=== PATIENT | female | born 1945 | race Caucasian/White ===

== ENCOUNTER 2019-10-24 13:27 | Outpatient (CLI) | payer MEDICARE, OTHER, SELFPAY ==
--- NOTE | 2019-10-24 13:37 | XR_ITS ---
WS: [id number] Left ankle, 3 views, 10/24/2019 Clinical Data: PRIMARY OSTEOARTHRITIS, LEFT ANKLE AND FOOT Comparison: Left ankle, 10/17/2017. Findings: No fractures or dislocations are seen. The ankle mortise is normal. The talus and calcaneus are unrem arkable. No soft tissue swelling over the medial or lateral malleolus is seen. There is an Achilles spur. There is osteoarthritic change of the talus. XR/XR ankle LT min 3V* [id number] Impression: Osteoarthritis of the left talus.
== END 2019-10-24 13:28 | disposition home or self-care (01) ==
LOC: RADWPI 13:35
PROVIDERS: Family Provider Family Medicine; PCP Family Medicine; Visit Provider Family Medicine
DX: M19.072 Primary osteoarthritis, left ankle and foot (principal)
CPT/HCPCS: 73610

== ENCOUNTER 2019-11-26 11:22 | Outpatient (CLI) | payer MEDICARE, OTHER, SELFPAY ==
--- NOTE | 2019-11-26 11:30 | MM_ITS ---
WS: [id number] BILATERAL SCREENING DIGITAL MAMMOGRAM WITH CAD HISTORY: screening COMPARISON: 11/22/2012 and 06/04/2012 Bilateral CC and MLO views submitted. Computer aided detection analyzed. Breast composition: There are scattered areas of fibroglandular density. No suspicious masses, microc alcifications or architectural distortion. Benign vascular calcifications in each breast. MM/[id number] IMPRESSION: BI-RADS: 2-Benign FOLLOW UP: 1 Year Follow-up
== END 2019-11-26 11:23 | disposition home or self-care (01) ==
LOC: RADSHAW 11:29
PROVIDERS: PCP Family Medicine; Visit Provider Family Medicine
DX: Z12.31 Encounter for screening mammogram for malignant neoplasm of breast (principal)
CPT/HCPCS: 77067

== ENCOUNTER → 2020-01-31 17:40 | Outpatient (BNVA) | payer MEDICARE, OTHER, SELFPAY | PROVIDERS: PCP Family Medicine; Visit Provider Emergency Medicine | DX: Z11.59 Encounter for screening for other viral diseases (principal) | CPT/HCPCS: 87635 ==

== ENCOUNTER 2020-12-31 09:33 | Outpatient (CLI) | payer MEDICARE, OTHER, SELFPAY ==
--- NOTE | 2020-12-31 09:47 | MM_ITS ---
WS: [id number] BILATERAL SCREENING DIGITAL MAMMOGRAM WITH CAD HISTORY: SCREENING COMPARISON: 11/26/2019, 11/22/2012 and 05/22/2012 Bilateral CC and MLO views submitted. Computer aided detection analyzed. Breast composition: There are scattered areas of fibroglandular density. No suspicious masses, microc alcifications or architectural distortion. Benign calcifications and breast arterial calcifications i n each breast. MM/[id number] IMPRESSION: BI-RADS: 2-Benign FOLLOW UP: 1 Year Follow-up
== END 2020-12-31 09:34 | disposition home or self-care (01) ==
LOC: RADSHAW 09:37
PROVIDERS: PCP Family Medicine; Visit Provider Family Medicine
DX: Z12.31 Encounter for screening mammogram for malignant neoplasm of breast (principal)
CPT/HCPCS: 77067

== ENCOUNTER → 2021-01-11 10:03 | Outpatient (BNVA) | payer MEDICARE, OTHER, SELFPAY | PROVIDERS: PCP Family Medicine; Visit Provider Family Medicine | DX: Z00.00 Encounter for general adult medical examination without abnormal findings (principal); M19.172 Post-traumatic osteoarthritis, left ankle and foot | CPT/HCPCS: 80053; 85025 ==

== ENCOUNTER → 2021-07-11 12:34 | Outpatient (BNVA) | payer MEDICARE, OTHER, SELFPAY | PROVIDERS: PCP Family Medicine; Visit Provider Internal Medicine Cardiovascular Disease | DX: I47.1 Supraventricular tachycardia (principal); E66.9 Obesity, unspecified | CPT/HCPCS: 99203 ==

== ENCOUNTER → 2022-04-12 13:32 | Outpatient (BNVA) | payer MEDICARE, OTHER, SELFPAY | PROVIDERS: PCP Family Medicine; Visit Provider Internal Medicine Cardiovascular Disease | DX: I47.1 Supraventricular tachycardia (principal) | CPT/HCPCS: 99213; Q3014 ==

== ENCOUNTER → 2022-08-01 13:03 | Outpatient (BNVA) | payer MEDICARE, OTHER, SELFPAY | PROVIDERS: PCP Family Medicine; Visit Provider Nurse Practitioner Family | DX: I47.1 Supraventricular tachycardia (principal); I49.9 Cardiac arrhythmia, unspecified | CPT/HCPCS: 99214 ==

== ENCOUNTER → 2023-04-24 14:41 | Outpatient (BNVA) | payer MEDICARE, OTHER, SELFPAY | PROVIDERS: PCP Family Medicine; Visit Provider Internal Medicine | DX: I47.10 Supraventricular tachycardia, unspecified (principal); I49.9 Cardiac arrhythmia, unspecified | CPT/HCPCS: 99213 ==

== ENCOUNTER → 2024-04-28 10:25 | Outpatient (BNVA) | payer MEDICARE, OTHER, SELFPAY | PROVIDERS: PCP Family Medicine; Visit Provider Family Medicine | DX: C44.311 Basal cell carcinoma of skin of nose; Z00.00 Encounter for general adult medical examination without abnormal findings; M21.612 Bunion of left foot; G56.03 Carpal tunnel syndrome, bilateral upper limbs | CPT/HCPCS: 80053; 81000; 85025 ==

== ENCOUNTER → 2024-05-05 12:36 | Outpatient (BNVA) | payer MEDICARE, OTHER, SELFPAY | PROVIDERS: PCP Family Medicine; Visit Provider Internal Medicine | DX: I47.10 Supraventricular tachycardia, unspecified (principal) | CPT/HCPCS: 99213 ==

== ENCOUNTER 2024-05-13 10:24 | Outpatient (CLI) | payer MEDICARE, OTHER, SELFPAY ==
--- NOTE | 2024-05-13 10:40 | MM_ITS ---
WS: [id number] BILATERAL 3D TOMOSYNTHESIS DIGITAL SCREENING MAMMOGRAPHY WITH CAD CLINICAL INFORMATION: Z12.39 - Encounter for other screening for malignant neop... HISTORY: Screening mammogram. No current complaints. COMPARISON: 2020 TECHNIQUE: Bilateral CC and MLO views. FINDINGS: The breasts are composed of heterogeneous fibroglandular density tissue, which can limit the detection of small underlying mass lesions. No suspicious mass, asymmetry, calcifications, or architectural distortion. No evidence of malignancy. Vascular calcifications. MM/MM [facility] tomosynthesis [id number] IMPRESSION: DENSITY: The breasts are heterogeneously dense, which may obscure small masses. BI-RADS: 2 - Benign FOLLOW UP: 1 Year Follow-up Recommend return to annual screening mammography.
== END 2024-05-13 10:25 | disposition home or self-care (01) ==
PROVIDERS: PCP Family Medicine; Visit Provider Family Medicine
DX: Z12.39 Encounter for other screening for malignant neoplasm of breast (principal); Z12.31 Encounter for screening mammogram for malignant neoplasm of breast; R92.323 Mammographic fibroglandular density, bilateral breasts; R92.1 Mammographic calcification found on diagnostic imaging of breast
CPT/HCPCS: 77063; 77067

== ENCOUNTER 2024-11-13 14:30 | Emergency (ER) | payer MEDICARE, OTHER, SELFPAY ==
[2024-11-13 14:32] VITALS: BP 123/63; PULSE 69; RESP 16; TEMP 36.5; O2SAT 94; BMI 38.8
--- NOTE | 2024-11-13 14:37 | ECG_ITS ---
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
--- NOTE | 2024-11-13 14:48 | W.ED.GENADLT ---
HPI - General Adult General: Chief complaint: Neuro Symptoms/Deficit Stated complaint: stroke lilke symptoms Time Seen by Provider: 11/13/24 14:48 History of Present Illness: 79-year-old female presents to the emergency room saying her mouth feels funny. Some of her symptoms began today at around 1230 others that began yesterday including some dizziness and weakness. She has been a little unsteady on her feet as well. She is using a cane today which she does not always use. No vision changes. Family said at times her speech seems off. Full NIH was done score is a 0. We did stand at the bedside she is able to stand without any difficulty Associated symptoms: Deny chest pain, dyspnea or rash Related Data Home Medications ?Medication ?Instructions ?Recorded ?Confirmed naproxen 220 mg-diphenhydramine 25 PO PRN 04/12/22 11/17/24 mg tablet (Aleve PM) aspirin 81 mg tablet 81 mg PO DAILY 11/17/24 11/17/24 Previous Rx's ?Medication ?Instructions ?Recorded metoprolol succinate 25 mg 25 mg PO DAILY #90 tabs 05/05/24 tablet,extended release 24 hr Allergies Allergy/AdvReac Type Severity Reaction Status Date / Time No Known Allergies Allergy Verified 11/17/24 10:41 Review of Systems Const: Denies: fever(s) or chills Card: Denies: chest pain Resp: Denies: dyspnea GI: Denies: abdominal pain : Denies: dysuria, urinary frequency or urinary urgency Musc: Denies: neck pain or back pain Skin/Breast: Denies: rash PFSH ED PFSH: Medical History Obesity (BMI 30-39.9) Osteoarthritis Osteoarthritis of left ankle Surgical History History of total hysterectomy History of shoulder surgery History of total knee replacement Social History Smoking and tobacco/nicotine status: never used tobacco/nicotine Alcohol intake: never Physical Exam Const: COMMON NORMALS: no acute distress GENERAL APPEARANCE: cooperative and comfortable ORIENTATION/CONSCIOUSNESS: Yes awake, Yes oriented to person, Yes oriented to place and Yes oriented to time HENMT: COMMON NORMALS: normocephalic, atraumatic and hearing grossly normal bilaterally HEAD & SCALP: normocephalic and atraumatic Resp: COMMON NORMALS: normal respiratory effort, No retractions, No use of accessory muscles and clear to auscultation bilaterally AUSCULTATION: clear to auscultation bilaterally Cardio: COMMON NORMALS: regular rate, regular rhythm and No murmurs present (Cardio) RATE: regular rate RHYTHM: regular rhythm GI: COMMON NORMALS: Soft to palpation and No hepatosplenomegaly present AUSCULTATION: Yes normoactive bowel sounds PALPATION: Yes Soft to palpation, No Tenderness to palpation present (GI), No Guarding due to palpation present (GI) and Yes No hepatosplenomegaly present Extremity: COMMON NORMALS: normal to inspection, capillary refill normal, no clubbing, cyanosis or edema, no calf tenderness and no pedal edema Neuro: SENSORIUM/ORIENTATION: Yes oriented to person, Yes oriented to place and Yes oriented to time Skin: COMMON NORMALS: no rashes or lesions noted GENERAL SKIN EXAM: no rashes or lesions noted Course Vital Signs: Vital signs: Vital Signs Temperature 97.7 F 11/13/24 14:32 Pulse Rate 61 11/13/24 18:21 Respiratory Rate 16 11/13/24 18:06 Blood Pressure 141/78 11/13/24 18:21 Pulse Oximetry 98 11/13/24 18:21 Oxygen Delivery Me thod Room Air 11/13/24 18:06 [facility] - General Adult Medical Decision Making Labs and imaging reviewed no localizing deficits noted on exam. NIH is 0. Suspect she has labyrinthitis. Will discharge patient home can use meclizine [id number] as needed Lab Data 11/13/24 15:27 11/13/24 15:[address] 11/13/24 15:13 IMPRESSION: No acute intracranial abnormality. Laboratory Results WBC 6.70 10^3/uL (3.29-11.43) 11/13/24 15:27 RBC 4.63 10^6/uL (3.85-5.65) 11/13/24 15:27 Hgb 13.00 g/dL (11.27-16.99) 11/13/24 15:27 Hct 40.5 % (36-47) 11/13/24 15:27 MCV 87.5 fl (85-98) 11/13/24 15:27 MCH 28.1 pg (27-33) 11/13/24 15:27 MCHC 32.1 g/dL (30-55) 11/13/24 15:27 RDW 12.1 % (12.1-15.1) 11/13/24 15:27 Plt Count 198 10^3/cmm (157-399) 11/13/24 15:27 MPV 11.4 fL (7.4-10.4) H 11/13/24 15:27 Neut % (Auto) 73.0 % 11/13/24 15:27 Lymph % (Auto) 16.9 % 11/13/24 15:27 Sebastian % (Auto) 6.1 % 11/13/24 15:27 Eos % (Auto) 3.3 % 11/13/24 15:27 Baso % (Auto) 0.6 % 11/13/24 15:27 Neut # (Auto) 4.89 10^3/uL (1.8-7.7) 11/13/24 15:27 Lymph # (Auto) 1.1 10^3/uL (0.8-4.8) 11/13/24 15:27 Sebastian # (Auto) 0.4 10^3/uL (0.2-0.9) 11/13/24 15:27 Eos # (Auto) 0.2 10^3/uL (0.0-0.8) 11/13/24 15:27 Baso # (Auto) 0.0 10^3/uL (0.0-0.1) 11/13/24 15:27 Nucleated RBC % (auto) 0 % 11/13/24 15:27 Nucleated RBCs # 0.0 /100WBC 11/13/24 15:27 Sodium 140 mmol/L (136-145) 11/13/24 15:27 Potassium 4.5 mmol/L (3.5-5.1) 11/13/24 15:27 Chloride 108 mmol/L (98-107) H 11/13/24 15:27 Carbon Dioxide 23 mmol/L (22-29) 11/13/24 15:27 Anion Gap 13.5 (5-19) 11/13/24 15:27 BUN 16 mg/dL (8-23) 11/13/24 15:27 Creatinine 0.7 mg/dL (0.5-0.9) 11/13/24 15:27 GFR Calculation Not Reportable 11/13/24 15:27 Glucose 92 mg/dL (65-115) 11/13/24 15:27 POC Glucose 83 mg/dL (70-110) 11/13/24 14:36 Calculated Osmolality 291 mOsm/kg (285-295) 11/13/24 15:27 Calcium 8.5 mg/dL (8.5-10.5) 11/13/24 15:27 Total Bilirubin 0.7 mg/dL (0.15-1.2) 11/13/24 15:27 AST 17 U/L (0-32) 11/13/24 15: ALT 14 U/L (0-33) 11/13/24 15:27 Alkaline Phosphatase 92 U/L (35-105) 11/13/24 15:27 Total Protein 7.0 g/dL (6.6-8.7) 11/13/24 15:27 Albumin 4.1 g/dL (3.5-5.2) 11/13/24 15:27 Globulin 2.9 g/dL (1.3-4.6) 11/13/24 15:27 Urine Color Yellow (Yellow) 11/13/24 15:40 Urine Appearance Cloudy (CLEAR) A 11/13/24 15:40 Urine pH 7.0 (5-7) 11/13/24 15:40 Ur Specific [place] 1.014 (1.005-1.030) 11/13/24 15:40 Urine Protein Negative (Negative) 11/13/24 15:40 Urine Glucose (UA) Negative (Normal) 11/13/24 15:40 Urine Ketones Negative (Negative) 11/13/24 15:40 Urine Blood Negative (Negative) 11/13/24 15:40 Urine Nitrate Negative (Negative) 11/13/24 15:40 Urine Bilirubin Negative (Negative) 11/13/24 15:40 Urine Urobilinogen 1.0 mg/dL (Negative) 11/13/24 15:40 Ur Leukocyte Esterase 1+ (Negative) A 11/13/24 15:40 Urine RBC 0-2 /hpf (0-2) 11/13/24 15:40 Urine WBC 0-5 /hpf (0-5) 11/13/24 15:40 Ur Squamous Epith Cells 0-5 /hpf (0-5) 11/13/24 15:40 Amorphous Sediment Not Reportable 11/13/24 15:40 Urine Bacteria None seen /hpf (NONE) 11/13/24 15:40 Hyaline Casts 0-4 /lpf H 11/13/24 15:40 All radiology interpretation(s) finalized by discharge Discharge Plan Discharge Patient Disposition: Home Clinical Impression: Acute labyrinthitis Condition: Stable Prescriptions: No Action Aleve PM 220-25 mg tablet PO PRN metoprolol succinate 25 mg tablet extended release 24 hr 25 mg PO DAILY Qty: 90 3RF aspirin 81 mg tablet 81 mg PO DAILY Discharge Orders: Discharge ED (Routine); Ordered 11/13/24 Ordered By: Jam Santiago Referrals: Sam Polanco MD [Primary Care Provider, [facility]] Discharge Diet: Usual diet Discharge Activity: Increase activity as tolerated Patient Instructions: Opioid Safety, Pain Management, Patient Portal & Jamil Instructions Activity Restrictions/Additional Instructions: Thank you for choosing [facility] for your healthcare needs today. It is very important that you follow up as instructed or that you return to the Emergency Department should you have concerns or if your condition changes or worsens in any way. You are seen in the emergency room with complaints of dizziness. Your stroke score was 0 CT of your head is negative. The remainder of your lab workup was normal. I would recommend you start taking a baby aspirin daily follow-up with your primary care doctor within the next week. Print Language: Turkish Coding Level of Care Code ED Short Haul Driver for Ja Novak NIH stroke score NIHSS Level Of Consciousness - 1a: 0 Level Of Consciousness Questions - 1b: Both Correct Level Of Consciousness Commands - 1c: Both Correct Best Gaze - 2: Normal Visual Shaw - 3: No Visual Loss Facial Palsy - 4: Normal Motor Arm Right - 5: No Drift Motor Arm Left - 5: No Drift Motor Leg Right - 6: No Drift Motor Leg Left - 6: No Drift Limb Ataxia - 7: Absent Sensory - 8: Normal Best Language - 9: No Aphasia Dysarthia - 10: Normal Extinction And Inattention - 11: 0 Score Total Score: 0
--- NOTE | 2024-11-13 15:13 | CTR_ITS ---
PROCEDURE INFORMATION: Exam: CT Head Without Contrast Exam date and time: 11/13/2024 3:54 PM Age: 79 years old Clinical indication: Dizziness TECHNIQUE: Imaging protocol: Computed tomography of the head without contrast. Radiation optimization: All CT scans at this facility use at least one of these dose optimization techniques: automated exposure control; mA and/or kV adjustment per patient size (includes targeted exams where dose is matched to clinical indication); or iterative reconstruction. COMPARISON: No relevant prior studies available. RADIATION DOSE METRICS: Total DLP (mGy-cm): 1077.58 FINDINGS: Brain: No acute intracranial hemorrhage. No edema. No mass effect. No focal abnormality in brain parenchyma. Cerebral ventricles: No hydrocephalus. The ventricles and sulci are mildly prominent in size in keeping with mild brain atrophy. Paranasal sinuses: Visualized sinuses are unremarkable. No fluid levels. Mastoid air cells: No mastoid effusion. Bones: Unremarkable. No acute fracture. Soft tissues: Unremarkable. CT/CT head wo con* [id number] IMPRESSION: No acute intracranial abnormality.
[2024-11-13 15:32] LABS: Hematocrit 40.5 % (36-47); Hemoglobin 13.00 g/dL (11.27-16.99); Mean Corpuscular HGB Conc 32.1 g/dL (30-55); Mean Corpuscular Hemoglobin 28.1 pg (27-33); Mean Corpuscular Volume 87.5 fl (85-98); Nucleated Red Blood Cells % 0 %; Platelet Count 198 10^3/cmm (157-399); Red Blood Count 4.63 10^6/uL (3.85-5.65); White Blood Count 6.70 10^3/uL (3.29-11.43)
[2024-11-13 15:51] LABS: Alanine Aminotransferase 14 U/L (0-33); Albumin Level 4.1 g/dL (3.5-5.2); Alkaline Phosphatase 92 U/L (35-105); Anion Gap 13.5 (5-19); Aspartate Amino Transferase 17 U/L (0-32); Blood Urea Nitrogen 16 mg/dL (8-23); Calcium 8.5 mg/dL (8.5-10.5); Carbon Dioxide 23 mmol/L (22-29); Chloride 108 mmol/L (98-107); Creatinine Clr Calc Pharmacy 68.7013; Globulin 2.9 g/dL (1.3-4.6); Glucose 92 mg/dL (65-115); Osmolality Calculated 291 mOsm/kg (285-295); Potassium 4.5 mmol/L (3.5-5.1); Sodium 140 mmol/L (136-145); Total Protein 7.0 g/dL (6.6-8.7)
[2024-11-13 16:08] LABS: Glucose Urine UA Negative (Normal); Nitrate Urine Negative (Negative); Specific Gravity, Urine 1.014 (1.005-1.030)
[2024-11-13 16:14] LABS: Add Urine Microscopic? YES
[2024-11-13 18:06] VITALS: BP 144/72; PULSE 61; RESP 16; O2SAT 93
[2024-11-13 18:21] VITALS: BP 141/78; PULSE 61; O2SAT 98
== END 2024-11-13 18:25 | disposition home or self-care (01) ==
PROVIDERS: Emergency Provider Family Medicine; PCP Family Medicine
DX: H83.09 Labyrinthitis, unspecified ear (principal); Z79.82 Long term (current) use of aspirin
CPT/HCPCS: 36415; 36416; 70450; 80053; 81001; 82962; 85025; 93005; 99284

== ENCOUNTER 2024-11-17 11:30 | Outpatient (CLI) | payer MEDICARE, OTHER, SELFPAY ==
--- NOTE | 2024-11-17 11:34 | XRR_ITS ---
PROCEDURE INFORMATION: Exam: XR Chest Exam date and time: 11/17/2024 11:45 AM Age: 79 years old Clinical indication: Coughx 1 week, history pneumonia; Additional info: Continued cough since prior to er visit TECHNIQUE: Imaging protocol: Radiologic exam of the chest. Views: 2 views. COMPARISON: No relevant prior studies available. FINDINGS: Lungs: Unremarkable. No consolidation. Pleural spaces: Unremarkable. No pleural effusion. No pneumothorax. Heart/Mediastinum: Unremarkable. No cardiomegaly. Bones/joints: Mild scoliosis with mild and moderate multilevel spondylosis. Otherwise, unremarkable. XR/XR chest 2V* [id number] IMPRESSION: No acute disease.
== END 2024-11-17 11:31 | disposition home or self-care (01) ==
PROVIDERS: PCP Family Medicine; Visit Provider Family Medicine
DX: J40 Bronchitis, not specified as acute or chronic (principal)
CPT/HCPCS: 71046

== ENCOUNTER 2024-11-24 08:37 | Outpatient (CLI) | payer MEDICARE, OTHER, SELFPAY ==
--- NOTE | 2024-11-24 08:45 | USCV_ITS ---
Leydi Godoy Age: 79 Gender: F : 1945 Exam Date: 11/24/2024 08:53 Ordering Phys: Sma Polanco MD Technologist: IBETH [place] [facility] [place]: Right side paresthsis Risk Factors: Previous Vascular Surgery: Right Brachial BP: / Left Brachial BP: / Right Left Velocity (cm/s) Spectral Plaque Velocity (cm/s) Spectral Plaque Syst/Diast Broadening Syst/Diast Broadening 69.70/ 13.60 Prox CCA 91.00 / 23.10 100.00/28.10 Mid CCA 105.90/ 29.50 91.00/ 25.90 Distal CCA 107.50/ 29.40 64.50/ 12.40 Prox ICA 65.30 / 20.30 45.20/ 13.50 Mid ICA 81.60 / 27.10 66.80/ 19.40 Distal ICA 67.80 / 20.30 70.40 ECA 63.50 0.70 ICA/CCA 0.80 Antegrade Vertebral Antegrade 48.40/ 8.20 cm/s 36.10/ 8.50 cm/s Tri Subclavian Tri 83.10 108.5 0 CONCLUSIONS Right ICA stenosis <50%. Mild atheromatous plaque right carotid bulb/ICA. Left ICA stenosis <50%. Mild atheromatous plaque left carotid bulb/ICA. Intimal thickening in the common carotid arteries and internal carotid arteries bilaterally. Normal antegrade Doppler flow noted in the right vertebral artery. Normal antegrade Doppler flow noted in the left vertebral artery. Juan Eldridge MD (Electronically Signed) Final Date: 24 November 2024 09:39 S
== END 2024-11-24 08:38 | disposition home or self-care (01) ==
LOC: RAD 08:38
PROVIDERS: PCP Family Medicine; Visit Provider Family Medicine
DX: G45.1 Carotid artery syndrome (hemispheric) (principal); J40 Bronchitis, not specified as acute or chronic
CPT/HCPCS: 93880

== ENCOUNTER 2025-01-16 10:08 | Outpatient (CLI) | payer MEDICARE, OTHER, SELFPAY ==
--- NOTE | 2025-01-16 08:30 | USCV_ITS ---
Jayne Leydi Age: 79 Gender: F : 1945 Exam Date: 01/16/2025 10:57 Ordering Phys: Sam Polanco MD Technologist: Ben Aguilar [place] [facility] [place] TIA w right paresthesias, hx supraventricular tachyarhythmia BP: 120 / 78 HR: 63 Rhythm: Sinus Technical Quality: Adequate MEASUREMENTS (Male / Female) Normal Values 2D ECHO LV Diastolic Diameter PLAX 5.8 cm 4.2 - 5.9 / 3.9 - 5.3 cm IVS Diastolic Thickness 0.9 cm 0.6 - 1.0 / 0.6 - 0.9 cm IVS Systolic Thickness 1.5 cm LVPW Diastolic Thickness 0.8 cm 0.6 - 1.0 / 0.6 - 0.9 cm LVPW Systolic Thickness 1.8 cm LVOT Diameter 2.1 cm LV Ejection Fraction 2D Teich 55.1 % LV Ejection Fraction MOD 4C 56.0 % LV Ejection Fraction MOD 2C 65.9 % LV Ejection Fraction 2C AL 65.5 % LA Diameter 4.1 cm RA Systolic Volume 4C AL 37.8 ml RA Systolic Volume 4C MOD 35.9 ml LA Sys Volume AL 44.0 cm cubed LA Sys Volume Index AL 20.1 cm cubed/m squared Aorta at Sinotubular Diameter 2.5 cm IVC Diameter 1.8 cm M-MODE LA Ao Ratio MM 1.5 AV Cusp Separation MM 1.9 cm DOPPLER AV Peak Velocity 107.0 cm/s LVOT Peak Velocity 101.0 cm/s AV Area Cont Eq vti 3.5 cm squared AV Area Cont Eq pk 3.4 cm squared MV Peak Velocity 81.0 cm/s MV Area PHT 5.7 cm squared Mitral E to A Ratio 0.8 TV Peak Velocity 334.0 cm/s TR Peak Velocity 377.0 cm/s TR Peak Gradient 56.9 mmHg TR Mean Velocity 324.0 cm/s TR Mean Gradient 44.0 mmHg TR Velocity Time Integral 112.3 cm PV Peak Velocity 80.0 cm/s RV Ejection Time 0.3 s FINDINGS Left Ventricle Normal left ventricular size, systolic function and wall thickness, with no regional wall motion abnormalities. Left ventricular ejection fraction is estimated at 60 %. Grade I/IV diastolic dysfunction (abnormal relaxation filling pattern), normal to mildly elevated filling pressures. Right Ventricle Normal right ventricular size and systolic function. Right Atrium Normal right atrial size. Left Atrium Mildly increased left atrial size. IA Septum Normal appearance of the interatrial septum. Mitral Valve Mildly thickened mitral valve. No mitral valve stenosis. Mild mitral valve regurgitation. Aortic Valve Mild aortic valve calcification. No aortic valve stenosis. Trace aortic valve regurgitation. Tricuspid Valve [id number]-nkyepvpz tricuspid valve regurgitation. Pulmonic Valve Mild pulmonary valve regurgitation. Pericardium No pericardial effusion. Aorta Normal diameter of the aortic root and ascending thoracic aorta. IVC Normal IVC diameter. CONCLUSIONS Normal left ventricular size, systolic function and wall thickness, with no regional wall motion abnormalities. Left ventricular ejection fraction is estimated at 60 %. Grade I/IV diastolic dysfunction (abnormal relaxation filling pattern), normal to mildly elevated filling pressures. Mildly increased left atrial size. Mild aortic valve calcification. No aortic valve stenosis. Trace aortic valve regurgitation. Nkaj-rp-mcehhbbd tricuspid valve regurgitation. Mildly thickened mitral valve. No mitral valve stenosis. Mild mitral valve regurgitation. There is no pericardial effusion. Right atrial pressure is around 5 mm of mercury. Rekha Felix MD (Electronically Signed) Final Date: 26 January 2025 20:54 S
== END 2025-01-16 10:09 | disposition home or self-care (01) ==
LOC: RAD 10:09
PROVIDERS: PCP Family Medicine; Visit Provider Family Medicine
DX: G45.8 Other transient cerebral ischemic attacks and related syndromes (principal); R93.1 Abnormal findings on diagnostic imaging of heart and coronary circulation; I51.7 Cardiomegaly; I34.0 Nonrheumatic mitral (valve) insufficiency; I35.8 Other nonrheumatic aortic valve disorders; I07.1 Rheumatic tricuspid insufficiency; I37.1 Nonrheumatic pulmonary valve insufficiency
CPT/HCPCS: 93306